=== PATIENT | male | born 1930 | race Caucasian/White ===

== ENCOUNTER → 2017-09-30 | Outpatient (CLI) | payer BC | LOC: COL.RAD 12:23 | DX: Z01.812 Encounter for preprocedural laboratory examination (principal); R91.8 Other nonspecific abnormal finding of lung field; R59.0 Localized enlarged lymph nodes; I28.8 Other diseases of pulmonary vessels; J43.9 Emphysema, unspecified | CPT/HCPCS: J7050; Q9967 ==

== ENCOUNTER → 2017-10-04 | Emergency (ER) | payer BC ==
[~2017-10-04] VITALS: Ht 185.4 cm; Wt 97.7 kg
[2017-10-04 11:55] VITALS: TEMP 97.8
[2017-10-04 12:23] LABS: BASO % 0.3 % (0.0-2.0); EOS # 0.1 (0.0-0.7); EOS % 1.4 % (0-4.0); GRAN # 4.6 (1.4-6.5); GRAN % 65.5 % (42.2-75.2); HEMATOCRIT 43.1 % (42.0-52.0); HEMOGLOBIN 14.3 g/dl (13.5-18.0); LYMPH # 1.7 (1.2-3.4); LYMPH % 23.9 % (20.0-51.0); MEAN CELL VOLUME 91 fl (80.0-100.0); MEAN CORPUSCULAR HEMOGLOBIN 30 pg (27.0-31.0); MEAN CORPUSCULAR HGB CONC 33 g/dl (33.0-37.0); MEAN PLATELET VOLUME 9.7 fl (7.4-10.4); MONO # 0.6 (0.1-0.6); MONO % 8.6 % (1.7-9.3); PLATELET COUNT 257 K/mm3 (130-400); RED BLOOD COUNT 4.73 M/mm3 (4.20-5.60)
[2017-10-04 12:36] LABS: ADJUSTED CALCIUM 9.5 mg/dL (8.4-10.2); ALBUMIN 4.6 gm/dL (3.5-5.0); BILIRUBIN,TOTAL 0.7 mg/dL (0.0-1.0); CREATININE, serum 0.93 mg/dL (0.66-1.25); POTASSIUM 3.9 mmol/L (3.4-5.0); TOTAL PROTEIN 7.2 gm/dL (6.4-8.2)
[2017-10-04 12:37] LABS: PARTIAL THROMBOPLASTIN TIME 30.9 SECONDS (26.0-37.0); PROTHROMBIN TIME 11.2 SECONDS (9.7-12.8)
[2017-10-04 12:51] LABS: PROLACTIN 8.8 ng/mL (3.7-17.9)
[2017-10-04 14:37] VITALS: BP 165/84; PULSE 55
== END ==
LOC: COL.ER 11:53
PROVIDERS: Emergency Medicine
DX: G93.89 Other specified disorders of brain (principal); F03.90 Unspecified dementia, unspecified severity, without behavioral disturbance, psychotic disturbance, mood disturbance, and anxiety; Z87.891 Personal history of nicotine dependence
CPT/HCPCS: J1953; J7030

== ENCOUNTER 2017-11-12 10:03 | Inpatient (IN) | payer MEDICARE, BC ==
[~2017-11-12] VITALS: Ht 185.4 cm; Wt 88.3 kg
[2017-11-12 12:01] LABS: BASO % 0.3 % (0.0-2.0); EOS % 0.3 % (0-4.0); GRAN # 9.5 (1.4-6.5); HEMATOCRIT 45.5 % (42.0-52.0); HEMOGLOBIN 15.4 g/dl (13.5-18.0); LYMPH % 8.5 % (20.0-51.0); MEAN CELL VOLUME 91 fl (80.0-100.0); MEAN CORPUSCULAR HEMOGLOBIN 31 pg (27.0-31.0); MEAN CORPUSCULAR HGB CONC 34 g/dl (33.0-37.0); MEAN PLATELET VOLUME 9.9 fl (7.4-10.4); MONO % 8.2 % (1.7-9.3); PLATELET COUNT 288 K/mm3 (130-400); RED BLOOD COUNT 5.03 M/mm3 (4.20-5.60); REDCELL DISTRIBUTION WIDTH-CV 14.1 % (11.5-14.5)
[2017-11-12 12:02] LABS: INR 0.9 (0.8-3.0); PROTHROMBIN TIME 10.6 SECONDS (9.7-12.8)
[2017-11-12 12:04] LABS: PARTIAL THROMBOPLASTIN TIME 28.6 SECONDS (26.0-37.0)
[2017-11-12 12:05] LABS: ALANINE AMINOTRANSFERASE 36 U/L (21-72); ALKALINE PHOSPHATASE 103 U/L (50-136); ANION GAP 8 mmol/L (7-16); AST,SGOT 33 U/L (15-37); BILIRUBIN,TOTAL 0.6 mg/dL (0.0-1.0); BLOOD UREA NITROGEN 15 mg/dL (9-20); CALCIUM 9.8 mg/dL (8.4-10.2); CARBON DIOXIDE 27 mmol/L (22-30); CHLORIDE 101 mmol/L (98-107); CREATININE, serum 0.63 mg/dL (0.66-1.25); GLUCOSE 110 mg/dL (74-106); PHOSPHOROUS 3.6 mg/dL (2.5-4.5); POTASSIUM 3.8 mmol/L (3.4-5.0); SODIUM 135 mmol/L (137-145); TOTAL PROTEIN 6.7 gm/dL (6.4-8.2)
[2017-11-12 12:17] LABS: TROPONIN-I < 0.012 ng/mL (0.000-0.034)
[2017-11-12 13:40] LABS: THYROID STIMULATING HORMONE 1.19 uIU/mL (0.465-4.680)
[2017-11-12 13:42] LABS: INFLUENZA A NEGATIVE; INFLUENZA B NEGATIVE
[2017-11-12] MEDS ORDERED: THEROMEGA1000 MG PO (15:25)
[2017-11-12] MEDS ORDERED: KEPPRA 500MG500 MG PO (15:25)
[2017-11-12] MEDS ORDERED: CALCIUM 600-D 61 TAB PO (15:25)
[2017-11-12] MEDS ORDERED: ICAPS AREDS SO1 EACH PO (15:25)
[2017-11-12] MEDS ORDERED: TOPROL XL 50MG50 MG PO (15:25)
[2017-11-12] MEDS ORDERED: LIPITOR 40MG TA40 MG PO (15:26)
[2017-11-12] MEDS ORDERED: HCTZ 25MG TAB25 MG PO (15:26)
[2017-11-12] MEDS ORDERED: NAMZARIC1 ECC PO (15:27)
[2017-11-12 18:08] VITALS: BP 156/78; PULSE 66; TEMP 98.4
[2017-11-12 20:00] VITALS: BP 140/76; PULSE 75; TEMP 98.2
[2017-11-12 23:30] VITALS: BP 147/96; PULSE 87; TEMP 98.8
[2017-11-13 04:05] VITALS: BP 134/59; PULSE 78; TEMP 98.6
[2017-11-13 07:44] LABS: ALBUMIN 3.4 gm/dL (3.5-5.0); BILIRUBIN,TOTAL 0.5 mg/dL (0.0-1.0); CALCIUM 9.3 mg/dL (8.4-10.2); CREATININE, serum 0.67 mg/dL (0.66-1.25); MAGNESIUM 1.8 mg/dL (1.6-2.3)
[2017-11-13 08:56] VITALS: BP 140/68; PULSE 82; TEMP 98.4
[2017-11-13 12:14] VITALS: BP 138/63; PULSE 67; TEMP 97.7
[2017-11-13 16:39] VITALS: BP 104/39; PULSE 64; TEMP 98.6
[2017-11-13 19:20] VITALS: BP 152/57; PULSE 66; TEMP 98.5
[2017-11-13 23:33] VITALS: BP 126/62; PULSE 71; TEMP 98.6
[2017-11-14 05:00] VITALS: BP 159/68; PULSE 58; TEMP 98.3
[2017-11-14 07:03] LABS: CALCIUM 9.1 mg/dL (8.4-10.2); CREATININE, serum 0.69 mg/dL (0.66-1.25); POTASSIUM 3.8 mmol/L (3.4-5.0)
[2017-11-14 09:31] VITALS: BP 152/67; PULSE 64; TEMP 97.8
[2017-11-14 12:22] VITALS: BP 146/87; PULSE 62; TEMP 97.6
[2017-11-14 15:49] VITALS: BP 145/72; PULSE 77; TEMP 97.5
[2017-11-14 20:24] VITALS: BP 121/59; PULSE 71; TEMP 98.8
[2017-11-15 00:33] VITALS: BP 169/87; PULSE 78; TEMP 98.9
[2017-11-15 03:30] VITALS: BP 169/78; PULSE 74; TEMP 98.2
[2017-11-15 08:45] VITALS: BP 137/56; PULSE 82; TEMP 98.2
[2017-11-15 12:30] VITALS: BP 140/60; PULSE 74; TEMP 98.2
[2017-11-15] MEDS ORDERED: DECADRON INJ4 MG/ML PO (13:38)
[2017-11-15 15:26] VITALS: BP 140/60; PULSE 74; TEMP 98.2
== END 2017-11-15 16:58 | DRG 54 ==
LOC: COL.ER 10:03 → MEDICAL 15:38
PROVIDERS: Emergency Medicine; Internal Medicine; Physician Assistant
DX: C79.31 Secondary malignant neoplasm of brain (principal); G93.6 Cerebral edema; C34.12 Malignant neoplasm of upper lobe, left bronchus or lung; G81.94 Hemiplegia, unspecified affecting left nondominant side; Z66 Do not resuscitate; G30.9 Alzheimer's disease, unspecified; F02.80 Dementia in other diseases classified elsewhere, unspecified severity, without behavioral disturbance, psychotic disturbance, mood disturbance, and anxiety; I10 Essential (primary) hypertension; E78.5 Hyperlipidemia, unspecified; G40.909 Epilepsy, unspecified, not intractable, without status epilepticus; Z86.73 Personal history of transient ischemic attack (TIA), and cerebral infarction without residual deficits; Z87.891 Personal history of nicotine dependence; Z85.46 Personal history of malignant neoplasm of prostate
CPT/HCPCS: 99223-AI; 99232-AI; 99233-AI; 99239; J0692; J1100; J1650; J7030